=== PATIENT | female | born 1930 | race Two or more races ===

== ENCOUNTER 2017-04-01 11:08 | Inpatient (IN) | payer MEDICAID, OTHER ==
[~2017-04-01] VITALS: Ht 152.4 cm; Wt 80.0 kg
[2017-04-01] MEDS ORDERED: SODIUM CHLORIDE FLUSH 10ML SYR IVF ONE ×2 (12:00→13:30)
[2017-04-01] MEDS ORDERED: HYDROmorphone 1 MG/ML, 1ML IVPush PRN (12:00)
[2017-04-01] MEDS ORDERED: ONDANSETRON ODT 4 MG PO ONE (12:00)
[2017-04-01] MEDS ORDERED: ONDANSETRON 2MG/ML, 2ML ONE ×2 (12:16→15:33)
[2017-04-01] MEDS ORDERED: HYDROmorphone 2 MG/ML, 1ML ONE ×3 (12:16→18:13)
[2017-04-01] MEDS ORDERED: SODIUM CHLORIDE 0.9% 1,000ML IVBOLUS ONE (13:30)
[2017-04-01 13:33] LABS: BASOPHILS # (AUTO) 0.02 x10^3/uL (0-0.1); BASOPHILS % (AUTO) 0 % (0-1); EOSINOPHILS # (AUTO) 0.01 x10^3/uL (0-0.4); EOSINOPHILS % (AUTO) 0 % (1-7); LYMPHOCYTES # (AUTO) 1.24 x10^3/uL (1-3.4); LYMPHOCYTES % (AUTO) 9 % (22-44); MD NO; MEAN CORPUSCULAR HEMOGLOBIN 31.1 pg (27.0-34.8); MEAN CORPUSCULAR HGB CONC 33.6 g/dL (32.4-35.8); MEAN CORPUSCULAR VOLUME 92.4 fL (80-100); MEAN PLATELET VOLUME 9.3 fL (7.4-10.4); MONOCYTES # (AUTO) 0.67 x10^3/uL (0.2-0.8); MONOCYTES % (AUTO) 5 % (2-9); NEUTROPHILS # (AUTO) 11.72 x10^3/uL (1.8-6.8); NEUTROPHILS % (AUTO) 86 % (42-75); PLATELET COUNT 216 x10^3/uL (130-400); RED BLOOD COUNT 4.46 x10^6/uL (3.82-5.3); RED CELL DISTRIBUTION WIDTH 13.4 % (9.6-15.2)
[2017-04-01 13:43] LABS: INTERNATIONAL NORMALIZED RATIO 0.98 (0.93-1.1); PROTHROMBIN TIME 10.2 Seconds (9.6-11.5)
[2017-04-01 13:46] LABS: ALANINE AMINOTRANSFERASE 22 U/L (12-78); ALBUMIN 3.7 g/dL (3.4-5.0); ANION GAP 7 mmol/L (5-15); CALCIUM 8.4 mg/dL (8.5-10.1); CHLORIDE 108 mmol/L (98-107); CREATININE 0.72 mg/dL (0.55-1.02)
[2017-04-01 13:48] LABS: ALKALINE PHOSPHATASE 182 U/L (45-117); BILIRUBIN,TOTAL 0.3 mg/dL (0.2-1.0); TOTAL PROTEIN 7.6 g/dL (6.4-8.2)
[2017-04-01] MEDS ORDERED: MIDAZOLAM 1 MG/ML, 2ML ONE (15:00)
[2017-04-01] MEDS ORDERED: FENTANYL PF 100 MCG/2ML ONE ×2 (15:00→17:16)
[2017-04-01] MEDS ORDERED: NEOSPORIN OINT, 15GM ONE (15:15)
[2017-04-01] MEDS ORDERED: morphine SULFATE 10 MG/ML, 1ML IVPush PRN (15:30)
[2017-04-01] MEDS ORDERED: LABETALOL 5MG/ML, 20ML IVPush PRN (15:30)
[2017-04-01] MEDS ORDERED: ONDANSETRON 2MG/ML, 2ML IVPush PRN ×2 (15:30→17:30)
[2017-04-01] MEDS ORDERED: ONDANSETRON ODT 4 MG PO PRN (15:30)
[2017-04-01] MEDS ORDERED: CEFAZOLIN 1,000 MG ONE (15:33)
[2017-04-01] MEDS ORDERED: PROPOFOL 10 MG/ML, 20ML ONE (15:33)
[2017-04-01] MEDS ORDERED: DEXAMETHASONE 4 MG/ML, 1ML ONE (15:33)
[2017-04-01] MEDS ORDERED: SUCCINYLCHOLINE 20 MG/ML, 10ML ONE (15:33)
[2017-04-01] MEDS ORDERED: ROCURONIUM 10 MG/ML,10ML ONE (15:33)
[2017-04-01] MEDS ORDERED: hydrALAzine 20 MG/ML, 1ML ONE (15:33)
[2017-04-01] MEDS ORDERED: GLYCOPYRROLATE 0.2MG/1ML, 5ML ONE (15:33)
[2017-04-01] MEDS ORDERED: NEOSTIGMINE 1 MG/ML, 10ML ONE (15:33)
[2017-04-01] MEDS ORDERED: MEPERIDINE/PF 50 MG/ML ONE (17:16)
[2017-04-01] MEDS ORDERED: ENOXAPARIN 40 MG/0.4 ML SQ SCH (17:30)
[2017-04-01] MEDS ORDERED: ALBUTEROL SULFATE 2.5 MG/3 ML NPPB PRN (17:30)
[2017-04-01] MEDS ORDERED: MIDAZOLAM 1 MG/ML, 2ML IV PRN (17:30)
[2017-04-01] MEDS ORDERED: METOPROLOL 1 MG/ML, 5ML IV PRN (17:30)
[2017-04-01] MEDS ORDERED: HYDROmorphone 1 MG/ML, 1ML IV PRN (17:30)
[2017-04-01] MEDS ORDERED: EPHEDRINE 50 MG/ML, 1ML IVPush PRN (17:30)
[2017-04-01] MEDS ORDERED: PROMETHAZINE 25 MG/ML, 1ML IV PRN (17:30)
[2017-04-01] MEDS ORDERED: hydrALAzine 20 MG/ML, 1ML IV PRN (17:30)
[2017-04-01] MEDS ORDERED: MEPERIDINE/PF 25MG/0.5ML IVPush PRN (17:30)
[2017-04-01] MEDS ORDERED: DIAZEPAM 5 MG/ML, 2ML IVPush PRN (17:30)
[2017-04-01] MEDS ORDERED: OXYcodone 5 MG/5 ML ORAL.SOL UDC PO PRN (17:30)
[2017-04-01] MEDS ORDERED: HYDROcodone/APAP 7.5-325MG/15ML UDC PO PRN (17:30)
[2017-04-01] MEDS ORDERED: LABETALOL 5MG/ML, 20ML IV PRN (17:30)
[2017-04-01] MEDS ORDERED: ACETAMINOPHEN 325 MG TABLET PO PRN (17:30)
[2017-04-01] MEDS: FENTANYL PF 100 MCG/2ML IV PRN ×2 (17:45→17:55)
[2017-04-01] MEDS ORDERED: ACETAMINOPHEN 650 MG/20.3 ML UDC ONE (17:54)
[2017-04-01] MEDS ORDERED: OXYcodone 5 MG/5 ML ORAL.SOL UDC ONE (17:55)
[2017-04-01] MEDS: SODIUM CHLORIDE 0.9% 1,000 ML IV SCH (18:40)
[2017-04-01 19:10] VITALS: BP 126/75
[2017-04-01 20:02] VITALS: BP 124/68
[2017-04-01] MEDS: CEFAZOLIN PMX 2GM/50ML 50 ML IVPB SCH (23:44)
[2017-04-02] VITALS: BP 117/71
[2017-04-02] MEDS: HYDROcodone/APAP 5/325 TABLET PO PRN ×4 (03:26→18:20)
[2017-04-02] MEDS: SODIUM CHLORIDE 0.9% 1,000 ML IV SCH ×2 (05:11→20:05)
[2017-04-02 05:50] LABS: CHLORIDE 108 mmol/L (98-107)
[2017-04-02 05:54] LABS: ALANINE AMINOTRANSFERASE 17 U/L (12-78); ALBUMIN 2.7 g/dL (3.4-5.0); ALKALINE PHOSPHATASE 117 U/L (45-117); ANION GAP 9 mmol/L (5-15); BILIRUBIN,TOTAL 0.3 mg/dL (0.2-1.0); CREATININE 0.81 mg/dL (0.55-1.02); TOTAL PROTEIN 6.1 g/dL (6.4-8.2)
[2017-04-02 05:56] LABS: BASOPHILS # (AUTO) 0.02 x10^3/uL (0-0.1); BASOPHILS % (AUTO) 0 % (0-1); EOSINOPHILS % (AUTO) 0 % (1-7); LYMPHOCYTES # (AUTO) 0.93 x10^3/uL (1-3.4); LYMPHOCYTES % (AUTO) 9 % (22-44); MD NO; MEAN CORPUSCULAR HEMOGLOBIN 31.4 pg (27.0-34.8); MEAN CORPUSCULAR HGB CONC 33.7 g/dL (32.4-35.8); MEAN PLATELET VOLUME 9.8 fL (7.4-10.4); MONOCYTES # (AUTO) 0.71 x10^3/uL (0.2-0.8); MONOCYTES % (AUTO) 7 % (2-9); NEUTROPHILS # (AUTO) 8.95 x10^3/uL (1.8-6.8); NEUTROPHILS % (AUTO) 84 % (42-75); PLATELET COUNT 191 x10^3/uL (130-400); RED BLOOD COUNT 3.31 x10^6/uL (3.82-5.3); RED CELL DISTRIBUTION WIDTH 13.2 % (9.6-15.2)
[2017-04-02 06:51] VITALS: BP 116/88
[2017-04-02] MEDS: SENNA/DOCUSATE TABLET PO SCH (08:14)
[2017-04-02] MEDS: CEFAZOLIN PMX 2GM/50ML 50 ML IVPB SCH (08:14)
[2017-04-02 12:43] VITALS: BP 108/58
[2017-04-02 18:54] VITALS: BP 117/66
[2017-04-03 01:43] VITALS: BP 115/54
[2017-04-03 05:36] LABS: CHLORIDE 107 mmol/L (98-107)
[2017-04-03 05:42] LABS: BASOPHILS # (AUTO) 0.01 x10^3/uL (0-0.1); BASOPHILS % (AUTO) 0 % (0-1); EOSINOPHILS # (AUTO) 0.02 x10^3/uL (0-0.4); EOSINOPHILS % (AUTO) 0 % (1-7); LYMPHOCYTES # (AUTO) 1.22 x10^3/uL (1-3.4); LYMPHOCYTES % (AUTO) 15 % (22-44); MD NO; MEAN CORPUSCULAR HEMOGLOBIN 31.5 pg (27.0-34.8); MEAN CORPUSCULAR HGB CONC 33.8 g/dL (32.4-35.8); MEAN CORPUSCULAR VOLUME 93.1 fL (80-100); MEAN PLATELET VOLUME 9.8 fL (7.4-10.4); MONOCYTES # (AUTO) 0.72 x10^3/uL (0.2-0.8); MONOCYTES % (AUTO) 9 % (2-9); NEUTROPHILS # (AUTO) 6.21 x10^3/uL (1.8-6.8); NEUTROPHILS % (AUTO) 76 % (42-75); PLATELET COUNT 152 x10^3/uL (130-400); RED BLOOD COUNT 2.82 x10^6/uL (3.82-5.3); RED CELL DISTRIBUTION WIDTH 13.8 % (9.6-15.2)
[2017-04-03 06:03] LABS: % IRON SATURATION 6 % (20-55); ALBUMIN 2.6 g/dL (3.4-5.0); ANION GAP 8 mmol/L (5-15); CALCIUM 7.8 mg/dL (8.5-10.1); CREATININE 0.59 mg/dL (0.55-1.02); IRON LEVEL 14 mcg/dL (50-170); THYROID STIMULATING HORMONE 0.794 mIU/L (0.358-3.740); TOTAL IRON BINDING CAPACITY 217 mcg/dL (250-450)
[2017-04-03] MEDS: HYDROcodone/APAP 5/325 TABLET PO PRN ×4 (06:05→23:47)
[2017-04-03] MEDS: ENOXAPARIN 30 MG/0.3 ML SQ SCH (06:05)
[2017-04-03 06:49] VITALS: BP 115/59
[2017-04-03] MEDS: SENNA/DOCUSATE TABLET PO SCH (09:14)
[2017-04-03 12:27] VITALS: BP 132/65
[2017-04-03] MEDS: FERROUS SULFATE 325 MG TABLET PO SCH ×2 (13:00→17:00)
[2017-04-03] MEDS ORDERED: FLU VACC QS2017-18 (36MOS+) UP/PF 0.5 ML IM-VACC ONE (14:30)
[2017-04-03] MEDS ORDERED: PNEUMOCOCCAL 23 VACCINE IM-VACC ONE (14:30)
[2017-04-03 20:02] VITALS: BP 130/61
[2017-04-04 02:32] VITALS: BP 116/65
[2017-04-04] MEDS: HYDROcodone/APAP 5/325 TABLET PO PRN ×3 (04:47→17:03)
[2017-04-04] MEDS: ENOXAPARIN 30 MG/0.3 ML SQ SCH (05:46)
[2017-04-04 08:22] VITALS: BP 161/75
[2017-04-04] MEDS ORDERED: POLY17PO5 PO (08:57)
[2017-04-04] MEDS: SENNA/DOCUSATE TABLET PO SCH (10:01)
[2017-04-04] MEDS: FERROUS SULFATE 325 MG TABLET PO SCH ×3 (10:01→21:21)
[2017-04-04 14:52] VITALS: BP 129/73
[2017-04-04 21:23] VITALS: BP 148/75
[2017-04-05 01:19] VITALS: BP 136/77
[2017-04-05] MEDS: ENOXAPARIN 30 MG/0.3 ML SQ SCH (05:03)
[2017-04-05] MEDS: HYDROcodone/APAP 5/325 TABLET PO PRN ×2 (05:04→11:48)
[2017-04-05 06:45] VITALS: BP 126/72
[2017-04-05] MEDS: SENNA/DOCUSATE TABLET PO SCH (09:06)
[2017-04-05] MEDS: FERROUS SULFATE 325 MG TABLET PO SCH ×3 (09:07→17:05)
[2017-04-05] MEDS ORDERED: OMNIPAQUE 350 MG/ML, 100ML BOTTLE ONE (11:13)
[2017-04-05 12:40] VITALS: BP 117/66
[2017-04-05 20:06] VITALS: BP 128/67
[2017-04-06 04:17] VITALS: BP 130/78
[2017-04-06] MEDS: HYDROcodone/APAP 5/325 TABLET PO PRN ×4 (04:41→17:16)
[2017-04-06] MEDS: ENOXAPARIN 30 MG/0.3 ML SQ SCH (04:41)
[2017-04-06 07:19] VITALS: BP 140/61
[2017-04-06] MEDS: SENNA/DOCUSATE TABLET PO SCH (08:30)
[2017-04-06] MEDS: FERROUS SULFATE 325 MG TABLET PO SCH ×3 (08:30→17:16)
[2017-04-06 12:48] VITALS: BP 154/74
[2017-04-06 18:45] VITALS: BP 133/71
[2017-04-07 03:20] VITALS: BP 188/92
[2017-04-07 03:35] VITALS: BP 140/80
[2017-04-07] MEDS: ENOXAPARIN 30 MG/0.3 ML SQ SCH (06:05)
[2017-04-07 07:36] VITALS: BP 167/74
[2017-04-07] MEDS: HYDROcodone/APAP 5/325 TABLET PO PRN ×2 (09:22→23:11)
[2017-04-07] MEDS: SENNA/DOCUSATE TABLET PO SCH (09:22)
[2017-04-07] MEDS: FERROUS SULFATE 325 MG TABLET PO SCH ×3 (09:22→17:04)
[2017-04-07] MEDS: CEFTRIAXONE PMX 1GM/50ML 50 ML IV SCH (09:33)
[2017-04-07] MEDS: AZITHROMYCIN 500 MG in SODIUM CHLORIDE 0.9% 250 ML IV SCH (11:10)
[2017-04-07 13:09] VITALS: BP 148/84
[2017-04-07 13:13] VITALS: BP 135/76
[2017-04-07 20:09] VITALS: BP 159/73
[2017-04-08 02:33] VITALS: BP 143/71
[2017-04-08] MEDS: ENOXAPARIN 30 MG/0.3 ML SQ SCH (05:45)
[2017-04-08 06:48] VITALS: BP 154/75
[2017-04-08] MEDS: SENNA/DOCUSATE TABLET PO SCH (10:07)
[2017-04-08] MEDS: CEFTRIAXONE PMX 1GM/50ML 50 ML IV SCH (10:07)
[2017-04-08] MEDS: FERROUS SULFATE 325 MG TABLET PO SCH ×3 (10:07→16:44)
[2017-04-08] MEDS: HYDROcodone/APAP 5/325 TABLET PO PRN (10:07)
[2017-04-08] MEDS: AZITHROMYCIN 500 MG in SODIUM CHLORIDE 0.9% 250 ML IV SCH (11:42)
[2017-04-08 13:10] VITALS: BP 169/70
[2017-04-08 19:35] VITALS: BP 146/69
[2017-04-09 03:19] VITALS: BP 140/62
[2017-04-09] MEDS: ENOXAPARIN 30 MG/0.3 ML SQ SCH (06:56)
[2017-04-09 07:15] VITALS: BP 173/72
[2017-04-09] MEDS: CEFTRIAXONE PMX 1GM/50ML 50 ML IV SCH (09:51)
[2017-04-09] MEDS: HYDROcodone/APAP 5/325 TABLET PO PRN (09:51)
[2017-04-09] MEDS: SENNA/DOCUSATE TABLET PO SCH (09:51)
[2017-04-09] MEDS: FERROUS SULFATE 325 MG TABLET PO SCH ×3 (09:51→16:39)
[2017-04-09] MEDS: AZITHROMYCIN 500 MG in SODIUM CHLORIDE 0.9% 250 ML IV SCH (10:46)
[2017-04-09 13:37] VITALS: BP 165/72
[2017-04-09 20:12] VITALS: BP 172/69
[2017-04-09] MEDS: CEFDINIR 300 MG CAPSULE PO SCH (21:18)
[2017-04-10 01:12] VITALS: BP 180/72
[2017-04-10 02:15] VITALS: BP 152/72
[2017-04-10] MEDS: ENOXAPARIN 30 MG/0.3 ML SQ SCH (05:49)
[2017-04-10 07:58] VITALS: BP 168/65
[2017-04-10] MEDS: CEFDINIR 300 MG CAPSULE PO SCH ×2 (08:19→20:38)
[2017-04-10] MEDS: FERROUS SULFATE 325 MG TABLET PO SCH ×3 (08:19→17:14)
[2017-04-10] MEDS: SENNA/DOCUSATE TABLET PO SCH (08:19)
[2017-04-10] MEDS: HYDROcodone/APAP 5/325 TABLET PO PRN ×3 (08:45→19:22)
[2017-04-10] MEDS: AZITHROMYCIN 500 MG in SODIUM CHLORIDE 0.9% 250 ML IV SCH (10:37)
[2017-04-10 12:55] VITALS: BP 154/71
[2017-04-10 21:10] VITALS: BP 147/67
[2017-04-11 02:37] VITALS: BP 158/83
[2017-04-11] MEDS: HYDROcodone/APAP 5/325 TABLET PO PRN ×3 (05:28→14:28)
[2017-04-11] MEDS: ENOXAPARIN 30 MG/0.3 ML SQ SCH (05:28)
[2017-04-11 08:05] VITALS: BP 152/70
[2017-04-11] MEDS: FERROUS SULFATE 325 MG TABLET PO SCH ×2 (08:37→12:42)
[2017-04-11] MEDS: SENNA/DOCUSATE TABLET PO SCH (08:37)
[2017-04-11] MEDS: CEFDINIR 300 MG CAPSULE PO SCH (08:37)
[2017-04-11] MEDS: AZITHROMYCIN 500 MG in SODIUM CHLORIDE 0.9% 250 ML IV SCH (10:14)
[2017-04-11] MEDS ORDERED: GABA300C PO (13:38)
[2017-04-11] MEDS ORDERED: ENOX30SY4 SQ (13:38)
[2017-04-11] MEDS ORDERED: CEFD300C37 PO (13:38)
[2017-04-11] MEDS ORDERED: AZIT500T PO (13:38)
[2017-04-11] MEDS ORDERED: FERR-51 PO (13:39)
[2017-04-11 14:00] VITALS: BP 151/76
== END 2017-04-11 14:45 | disposition home or self-care (01) | DRG 480 ==
LOC: ED 12:18 → EDIP 14:02 → 4NOR 18:44
PROVIDERS: ADMIT Hospitalist; ATTEND Internal Medicine
PROC: 0QS706Z Reposition Left Upper Femur with Intramedullary Internal Fixation Device, Open Approach (ICD-10-PCS; principal; 2017-04-01 14:30)
PROC: 02HV33Z Insertion of Infusion Device into Superior Vena Cava, Percutaneous Approach (ICD-10-PCS; 2017-04-07)
PROC: B548ZZA Ultrasonography of Superior Vena Cava, Guidance (ICD-10-PCS; 2017-04-07)
PROC: B5181ZA Fluoroscopy of Superior Vena Cava using Low Osmolar Contrast, Guidance (ICD-10-PCS; 2017-04-07)
DX: S72.142A Displaced intertrochanteric fracture of left femur, initial encounter for closed fracture (principal); J96.01 Acute respiratory failure with hypoxia; J69.0 Pneumonitis due to inhalation of food and vomit; E43 Unspecified severe protein-calorie malnutrition; D50.9 Iron deficiency anemia, unspecified; I10 Essential (primary) hypertension; W00.0XXA Fall on same level due to ice and snow, initial encounter; Y93.89 Activity, other specified; Y92.89 Other specified places as the place of occurrence of the external cause; Y99.8 Other external cause status; Z83.3 Family history of diabetes mellitus; Z23 Encounter for immunization
CPT/HCPCS: 36415; 36569; 71045; 71275; 76001; 76937; 77001; 80048; 80053; 82040; 82607; 82728; 82746; 83540; 83550; 83735; 84100; 84439; 84443; 85014; 85018; 85025; 85610; 85730; 90686; 90732; 93005; 96374; C1713; J0456; J0690; J0696; J1100; J1170; J1650; J2175; J2250; J2405; J2704; J2710; J3010; J3490; Q0162; Q9967; C1751; J0330; J0360; J7030; J7050